=== PATIENT | male | born 1950 | race African-American/Black ===

== ENCOUNTER 2019-09-01 11:41 | Emergency (ER) | payer OTHER ==
[~2019-09-01] VITALS: Ht 185.4 cm; Wt 88.0 kg
[2019-09-01 12:40] VITALS: BP 180/105
== END 2019-09-01 13:13 | disposition home or self-care (01) ==
LOC: ER 11:41
DX: K40.90 Unilateral inguinal hernia, without obstruction or gangrene, not specified as recurrent (principal); I10 Essential (primary) hypertension; Z86.73 Personal history of transient ischemic attack (TIA), and cerebral infarction without residual deficits
CPT/HCPCS: 99281